=== PATIENT | female | born 1995 | race Caucasian/White ===

== ENCOUNTER 2017-04-08 19:13 | Emergency (ER) | payer SELFPAY ==
[~2017-04-08] VITALS: Ht 172.7 cm; Wt 56.7 kg
[2017-04-08 19:26] VITALS: BP 133/77
[2017-04-08] MEDS ORDERED: AMOX500T PO (19:54)
[2017-04-08] MEDS ORDERED: ROPI0.5T PO (19:54)
[2017-04-08] MEDS ORDERED: CYCL10TA2 PO (19:54)
--- NOTE | 2017-04-08 19:54 | PHYS DOC ---
Past Medical History Past Medical History: Other Additional Past Medical Histor: 'diabetic i dont know' Past Surgical History: Other Additional Past Surgical Histo: R FOREARM Alcohol Use: Heavy Additional Information: DAILY ETOH Drug Use: None Adult General Chief Complaint Chief Complaint: [facility] INJUR[facility] HPI Patient is a 22 year old female who presents with right thumb tremors on rest that began 3 days ago. 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 Patient denies any injury. Denies drug use. Patient is also complaining of dental infection. Denies any fever or trismus Review of Systems Review of Systems Constitutional: Denies fever or chills [] Eyes: Denies change in visual acuity, redness, or eye pain [] HENT: Dental infection Respiratory: Denies cough or shortness of breath [] Cardiovascular: No additional information not addressed in HPI [] GI: Denies abdominal pain, nausea, vomiting, bloody stools or diarrhea [] : Denies dysuria or hematuria [] Musculoskeletal: Left thumb tremors Integument: Denies rash or skin lesions [] Neurologic: Denies headache, focal weakness or sensory changes [] Allergies Allergies Allergies Coded Allergies Type Severity Reaction Last Updated Verified Latex, Natural Rubber Allergy Intermediate Itching 04/08/17 Yes Physical Exam Physical Exam Constitutional: Well developed, well nourished, no acute distress, non-toxic appearance. [] HENT: Normocephalic, atraumatic, bilateral external ears normal, oropharynx moist, no oral exudates, nose normal. [] Left lower gums with mild erythema and diffuse swelling, no fluctuance noted to the gum. Scattered infected dental caries noted. Eyes: PERRLA, EOMI, conjunctiva normal, no discharge. [] Neck: Normal range of motion, no tenderness, supple, no stridor. [] Cardiovascular:Heart rate regular rhythm, no murmur [] Lungs & Thorax: Bilateral breath sounds clear to auscultation [] Abdomen: Bowel sounds normal, soft, no tenderness, no masses, no pulsatile masses. [] Skin: Warm, dry, no erythema, no rash. [] Back: No tenderness, no CVA tenderness. [] Extremities: No tenderness, no cyanosis, no clubbing, ROM intact, no edema. Tremors noted to the left thumb. Neurologic: Alert and oriented X 3, normal motor function, normal sensory function, no focal deficits noted. [] Psychologic: Affect normal, judgement normal, mood normal. [] Current Patient Data Vital Signs Vital Signs Date Time Temp Pulse Resp B/P (MAP) Pulse Ox O2 Delivery O2 Flow Rate FiO2 04/08/17 19:26 98.3 93 18 99 Room Air 98.3 EKG EKG [] Radiology/Procedures Radiology/Procedures [] Course & Med Decision Making Course & Med Decision Making Pertinent Labs and Imaging studies reviewed. 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 She was provided an Brady wrap to the right thumb which was applied by me, neurovascular exam is normal, this seemed to slow down the tremors. I offered a muscle relaxer as well as Requip. I recommended following up with an orthopedic doctor as well as a neurologist. She was discharged with amoxicillin for dental infection. She is supposed to follow-up with the dentist for the infection Dragon Disclaimer Dragon Disclaimer This electronic medical record was generated, in whole or in part, using a voice recognition dictation system. Departure Departure Impression: Primary Impression: Tremor of left hand Additional Impression: Infected dental caries Disposition: 01 HOME, SELF-CARE Condition: STABLE Referrals: ZAY SHI MD follow up next week TONY CABRERA MD follow up next week if tremors continue Patient Instructions: Dental Caries, Tremor Additional Instructions: You were seen for left thumb tremors. We wrapped your thumb. Keep the Brady wrap on as tolerated. Take the medications provided as ordered. Follow-up with the provided neurologist and orthopedic doctor next week as well as a dentist for the dental infection. Scripts Cyclobenzaprine Hcl (CYCLOBENZAPRINE HCL) 10 Mg Tablet 1 TAB PO TID, #30 TAB Prov: MUTUNGALOIS CLINICAL REVIEW SPECIALIST 04/08/17 Amoxicillin (AMOXICILLIN) 500 Mg Tablet 1 TAB PO TID, #30 TAB Prov: MUTUNGA,LOIS CLINICAL REVIEW SPECIALIST 04/08/17 Ropinirole Hcl (REQUIP) 0.5 Mg Tablet 1 TAB PO QHS, #7 TAB 1 Refill Prov: MUTUNGALOIS CLINICAL REVIEW SPECIALIST 04/08/17 Problem Qualifiers MUTUNGA,LOIS CLINICAL REVIEW SPECIALIST Apr 08, 2017 19:54
== END 2017-04-08 20:09 | disposition home or self-care (01) ==
LOC: ER 20:06
DX: R25.1 Tremor, unspecified (principal); K04.7 Periapical abscess without sinus; K02.9 Dental caries, unspecified; Z91.040 Latex allergy status
CPT/HCPCS: 99283

== ENCOUNTER 2017-06-05 18:13 | Observation (INO) | payer SELFPAY ==
[~2017-06-05 18:13] MED LIST: AMOX500T PO; CYCL10TA2 PO; ROPI0.5T PO
[2017-06-05 18:48] LABS: BILIRUBIN,URINE NEGATIVE (NEG); GLUCOSE,URINE NEGATIVE (NEG); NITRITE,URINE NEGATIVE (NEG); PH,URINE 6.5; PROTEIN,URINE NEGATIVE (NEG-TRACE); UROBILINOGEN,URINE 0.2 mg/dL (0.2 mg/dL)
[2017-06-05 18:50] LABS: NEG OBC UR NEG; POS OBC UR POS
[2017-06-05 18:56] LABS: BARBITURATES NEG (NEG); BENZODIAZEPINES NEG (NEG); CANNABINOIDS NEG (NEG); COCAINE NEG (NEG); METHADONE NEG (NEG); OPIATES NEG (NEG); PHENCYCLIDINE NEG (NEG)
[2017-06-05 19:16] LABS: BACTERIA,URINE FEW /HPF (0-FEW); RBC,URINE 0 /HPF (0-2); SQUAMOUS EPITHELIAL CELL,UR FEW /LPF
--- NOTE | 2017-06-05 19:28 | RAD ---
OB ultrasound study less than 14 weeks. INDICATIONS: No heart tones. FINDINGS: Uterus is anteverted in position. There is an intrauterine sac within the central aspect of the endometrial canal extending into the upper aspect containing a single fetus. Average crown-rump length is 3.4 cm which equals 10 weeks 2 days +/- 6 days with an EDC of December 30, 2017. heart rate is 168 bpm. No uterine mass or fibroid is seen. No extra chorionic hemorrhage is seen. Amniotic fluid volume and amniotic sac appear normal. Cervical length is 3.5 cm. The left ovary measures 2.9 cm and 2.5 cm and 2.4 cm in size and contains a 1.7 cm corpus luteum cyst. The right ovary measures 2.8 cm and 1.5 cm and 1.4 cm in size and is normal. No adnexal mass is seen. No free fluid is seen within the cul-de-sac. IMPRESSION: Single IUP with gestational age of 10 weeks 2 days. Electronically signed by: Dioni Correia MD (06/05/2017 7:25 PM) [facility]
== END 2017-06-05 20:05 | disposition home or self-care (01) ==
LOC: 3 SO LND 18:13
PROVIDERS: ADMIT Obstetrics & Gynecology; ATTEND Obstetrics & Gynecology
DX: O26.891 Other specified pregnancy related conditions, first trimester (principal); R10.9 Unspecified abdominal pain; Z3A.10 10 weeks gestation of pregnancy
CPT/HCPCS: 76801; 80307; 81001; 81025; G0378; G0379; G0479

== ENCOUNTER 2017-08-08 18:31 | Emergency (ER) | payer OTHER ==
[2017-08-08 18:50] LABS: URINE HCG POC HCG POSITIVE (Negative)
[2017-08-08 19:12] LABS: BILIRUBIN,URINE NEGATIVE (NEG); CLARITY,URINE CLEAR; COLOR,URINE YELLOW; GLUCOSE,URINE NEGATIVE (NEG); NITRITE,URINE NEGATIVE (NEG); PROTEIN,URINE NEGATIVE (NEG-TRACE); UROBILINOGEN,URINE 0.2 mg/dL (0.2 mg/dL)
[2017-08-08 19:20] LABS: BACTERIA,URINE MODERATE /HPF (0-FEW); RBC,URINE 0 /HPF (0-2)
[2017-08-08 19:21] LABS: SQUAMOUS EPITHELIAL CELL,UR MOD /LPF
== END 2017-08-08 20:17 | disposition home or self-care (01) ==
LOC: ER 18:31
DX: O26.892 Other specified pregnancy related conditions, second trimester (principal); Z3A.19 19 weeks gestation of pregnancy; Z88.8 Allergy status to other drugs, medicaments and biological substances; Z91.040 Latex allergy status; W10.9XXA Fall (on) (from) unspecified stairs and steps, initial encounter; Y93.89 Activity, other specified; Y99.8 Other external cause status; Y92.89 Other specified places as the place of occurrence of the external cause; R10.33 Periumbilical pain
CPT/HCPCS: 76815; 81001; 81025; 87086; 99285-25

== ENCOUNTER 2017-12-21 22:14 | Inpatient (IN) | payer OTHER ==
[2017-12-21] MEDS ORDERED: TERBUTALINE 1 MG/ML VIAL. SQ (22:30)
[2017-12-21] MEDS ORDERED: ACETAMINOPHEN 325 MG TABLET. PO (22:30)
[2017-12-21] MEDS ORDERED: BUTORPHANOL 2 MG/ML VIAL. IV (22:30)
[2017-12-21] MEDS ORDERED: LIDOCAINE 1% PF 30 ML VIAL. INJ (22:30)
[2017-12-21] MEDS ORDERED: fentaNYL PF VIAL 100 MCG/2 ML VIAL IV (22:30)
[2017-12-21] MEDS ORDERED: 0.9 % SODIUM CHLORIDE 10 ML DISP.SYRIN. IV (22:30)
[2017-12-21 22:52] LABS: BILIRUBIN,URINE NEGATIVE (NEG); CLARITY,URINE HAZY; COLOR,URINE YELLOW; GLUCOSE,URINE NEGATIVE (NEG)
[2017-12-21 22:53] LABS: BACTERIA,URINE MODERATE /HPF (0-FEW); NITRITE,URINE NEGATIVE (NEG); PROTEIN,URINE 30 mg/dL (NEG-TRACE); SQUAMOUS EPITHELIAL CELL,UR FEW /LPF; UROBILINOGEN,URINE 0.2 mg/dL (0.2 mg/dL)
[2017-12-21 23:08] LABS: BARBITURATES NEG (NEG); BENZODIAZEPINES NEG (NEG); CANNABINOIDS NEG (NEG); COCAINE NEG (NEG); METHADONE NEG (NEG); OPIATES NEG (NEG); PHENCYCLIDINE NEG (NEG)
[2017-12-21 23:13] LABS: AMPHETAMINE/METHAMPHETAMINE NEG (NEG); ETHANOL, URINE NEG (NEG)
[2017-12-21] MEDS: IV RINGERS,LACTATED 1000ML 1,000 ML IV (23:13)
[2017-12-21 23:21] LABS: BASO # 0.1 x10^3/uL (0.0-0.2); BASO % 1 % (0-3); EOS % 0 % (0-3); HEMOGLOBIN 13.2 g/dL (12.0-15.5); LYMPH # 2.4 x10^3/uL (1.0-4.8); LYMPH % 13 % (24-48); MEAN CORPUSCULAR HEMOGLOBIN 33 pg (25-35); MEAN CORPUSCULAR HGB CONC 36 g/dL (31-37); MEAN CORPUSCULAR VOLUME 91 fL (79-100); MONO # 1.3 x10^3/uL (0.0-1.1); MONO % 7 % (0-9); NEUT # 14.8 x10^3uL (1.8-7.7); NEUT % 79 % (31-73); PLATELET COUNT 259 x10^3/uL (140-400); RED BLOOD COUNT 4.04 x10^6/uL (3.50-5.40); RED CELL DISTRIBUTION WIDTH 12.8 % (11.5-14.5); WHITE BLOOD COUNT 18.6 x10^3/uL (4.0-11.0)
[2017-12-21 23:25] LABS: ADD MAN DIFF? YES
[2017-12-22] MEDS: BUTORPHANOL 2 MG/ML VIAL. IV (00:02)
[2017-12-22 00:39] LABS: % BANDS 4 % (0-9); % LYMPHS 6 % (24-48); % MONOS 3 % (0-10); PLT ESTIMATE ADEQUATE (ADEQUATE)
[2017-12-22 00:40] LABS: % SEGS 87 % (35-66)
[2017-12-22] MEDS: IV RINGERS,LACTATED 1000ML 1,000 ML IV ×2 (01:42→02:18)
[2017-12-22] MEDS ORDERED: ROPIVacaine 0.2% IN 0.9%NACL PF 40 MG/20 ML DISP.SYRIN. (01:54)
[2017-12-22] MEDS: fentaNYL PF VIAL 100 MCG/2 ML VIAL EPI (02:15)
[2017-12-22] MEDS: L&D EPIDURAL SYRINGE 50 ML EP ×2 (02:20→05:20)
[2017-12-22] MEDS ORDERED: ePHEDrine PF IN SALINE 50 MG/5 ML DISP.SYRIN IV (02:30)
[2017-12-22] MEDS ORDERED: NALOXONE 0.4 MG/ML VIAL. IV (02:30)
[2017-12-22] MEDS ORDERED: ONDANSETRON PF 4 MG/2 ML VIAL. IV (02:30)
[2017-12-22] MEDS: ROPIVacaine 0.2% PF 10 ML VIAL. EPI (02:30)
[2017-12-22] MEDS ORDERED: L&D EPIDURAL CASSETTE 100 ML EP (05:30)
[2017-12-22] MEDS ORDERED: OXYTOCIN 30 UNIT/500 ML PREMIX 500 ML IV (06:00)
[2017-12-22] MEDS ORDERED: OXYTOCIN PREMIX 30 UNIT/500 ML BAG. IV (07:00)
[2017-12-22] MEDS ORDERED: L&D EPIDURAL SYRINGE 50 ML EP (10:00)
[2017-12-22] MEDS: IBUPROFEN 800 MG TABLET. PO (10:01)
[2017-12-22] MEDS: OXYTOCIN 30 UNIT/500 ML PREMIX 500 ML IV (10:01)
[2017-12-22] MEDS ORDERED: IV RINGERS,LACTATED 1000ML 1,000 ML IV (20:39)
[2017-12-23 08:21] LABS: RPR Non Reactive (Non Reactive)
[2017-12-23] MEDS: IBUPROFEN 800 MG TABLET. PO ×2 (10:04→19:35)
[2017-12-24] MEDS ORDERED: BISACODYL 10 MG SUPP.RECT. PR (08:45)
[2017-12-24] MEDS: IBUPROFEN 800 MG TABLET. PO ×2 (09:13→15:24)
[2017-12-24] MEDS: SENNOSIDES/DOCUSATE 8.6/50MG TABLET. PO (09:14)
[2017-12-24] MEDS: MAGNESIUM HYDROXIDE 2,400 MG/30 ML ORAL.SUSP. PO (09:14)
[2017-12-24] MEDS: MEASLES, MUMPS & RUBELLA VACC 0.5 ML VIAL. VAX SQ (15:29)
[2017-12-24] MEDS: DIPHTH,PERTUSS(ACELL),TET TOX 0.5 ML DISP.SYRIN. VAX IM (15:33)
== END 2017-12-24 16:45 | disposition home or self-care (01) | DRG 775 ==
LOC: 3 SO LND 22:14 → 3 NORTH 12-22 10:45
PROC: 10E0XZZ Delivery of Products of Conception, External Approach (ICD-10-PCS; principal; 2017-12-21)
DX: O80 Encounter for full-term uncomplicated delivery (principal); Z37.0 Single live birth; Z88.8 Allergy status to other drugs, medicaments and biological substances; Z91.040 Latex allergy status
CPT/HCPCS: 36415; 80307; 81001; 85007; 85025; 86593; 86850; 86900; 86901; 87086; 90707; 90715; J2590; J2795; J3010; J7120